=== PATIENT | female | born 1950 | race African-American/Black ===

== ENCOUNTER 2018-02-09 10:38 | Inpatient (IN) ==
[2018-02-09] MEDS ORDERED: GLUCAGON 1 MG VIAL IM PRN (11:22)
[2018-02-09] MEDS ORDERED: DEXTROSE 50% 25 GM/50 ML VIAL IV PRN (11:22)
[2018-02-09] MEDS: DEXTROSE 5% NACL 0.45% 1,000 ML IV SCH (14:03)
[2018-02-09] MEDS: INSULIN REGULAR 100 UNIT/ML SUBCUT SCH ×3 (14:10→22:01)
[2018-02-09 17:12] LABS: Apearance,Urine CLEAR (Clear); Bilirubin,Urine Negative (Negative); Blood, Urine Negative (Negative); Glucose,Urine (UA) Negative (Negative); Ketones,Urine Negative (Negative); Nitrite,Urine Negative (Negative); Protein,Urine Negative; RBC,Urine <1 /HPF (0-4); Urine Color Yellow (Yellow); Urine Specific Gravity 1.011 (1.001-1.035); Urine Urobilinogen < 2.0 EU/DL (0.2-1.0); WBC,Urine <1 /HPF (0-6)
[2018-02-09] MEDS ORDERED: INSULIN NPH/REGULAR 70/30 100 UNIT/ML SUBCUT SCH (19:00)
[2018-02-09] MEDS: CIPROFLOXACIN 250 MG TABLET PO SCH (21:59)
[2018-02-09] MEDS: CARVEDILOL 25 MG TABLET PO SCH (21:59)
[2018-02-09] MEDS: INSULIN GLARGINE 100 UNIT/ML SUBCUT SCH (22:02)
[2018-02-09] MEDS: POTASSIUM CHLORIDE 20 MEQ TABLET PO SCH (22:02)
[2018-02-10] MEDS: DEXTROSE 5% NACL 0.45% 1,000 ML IV SCH ×2 (05:22→20:43)
[2018-02-10 06:04] LABS: Basophils % 0.4 % (0.0-0.8); Eosinophils # 0.2 10*3/uL (0.0-0.87); Eosinophils % 2.9 % (0.00-10.9); Hematocrit 28.3 VOL% (35.7-47.0); Hemoglobin 9.2 GM/DL (12.0-16.0); Immature Granulocytes % 0.4 %; Immature Granulocytes Absolute 0.03 #; Lymphocytes # 1.5 10*3/uL (1.4-4.0); Lymphocytes % 19.7 % (21.3-54.2); Mean Corpuscular HGB Conc 32.5 GM/DL (32-36); Mean Corpuscular Hemoglobin 27 PG (27-34); Mean Corpuscular Volume 82.3 FL (87-102); Mean Platelet Volume 10.4 FL (9.6-12.0); Monocytes # 0.7 10*3/uL (0.11-0.8); Monocytes % 9.7 % (1.7-12.7); Neutrophils # 4.9 10*3/uL (1.4-7.4); Neutrophils % 66.9 % (38.7-73.9); Platelet Count 232 T/CUMM (130-400); Red Blood Count 3.44 MC/CUMM (3.8-5.5); Red Cell Distribution Width 15.5 % (9.3-17.3); White Blood Count 7.4 T/CUMM (4-12)
[2018-02-10 06:06] LABS: INR 1.6; PT Patient Result 16.6 SECS
[2018-02-10 06:40] LABS: Osmolality,Calculated 280.7 MOS/KG (273-304); Potassium 3.8 MMOL/L (3.5-5.1)
[2018-02-10] MEDS: LISINOPRIL 20 MG TABLET PO SCH (09:08)
[2018-02-10] MEDS: ATORVASTATIN 20 MG TABLET PO SCH (09:08)
[2018-02-10] MEDS: FUROSEMIDE 40 MG TABLET PO SCH (09:08)
[2018-02-10] MEDS: amLODIPine 5 MG TABLET PO SCH (09:08)
[2018-02-10] MEDS: ASPIRIN EC 81 MG TABLET PO SCH (09:09)
[2018-02-10] MEDS: POTASSIUM CHLORIDE 20 MEQ TABLET PO SCH ×2 (09:09→20:42)
[2018-02-10] MEDS: CARVEDILOL 25 MG TABLET PO SCH ×2 (09:09→18:10)
[2018-02-10] MEDS: OXYBUTYNIN 5 MG TABLET PO SCH (09:09)
[2018-02-10] MEDS: CIPROFLOXACIN 250 MG TABLET PO SCH ×2 (09:11→20:42)
[2018-02-10] MEDS: INSULIN REGULAR 100 UNIT/ML SUBCUT SCH ×4 (09:11→22:11)
[2018-02-10] MEDS: INSULIN NPH/REGULAR 70/30 100 UNIT/ML SUBCUT SCH ×2 (09:12→22:10)
[2018-02-10] MEDS: LEVOTHYROXINE 112 MCG TABLET PO SCH (12:20)
[2018-02-10 12:35] LABS: Free T4 (Free Thyroxine) 1.62 NG/DL (0.76-1.46); Thyroid Stimulating Hormone 1.16 uIU/ml (0.358-3.74)
[2018-02-10 13:01] LABS: % Iron Saturation 18.2 % (18-50)
[2018-02-10] MEDS: WARFARIN 5 MG TABLET PO SCH (18:10)
[2018-02-10] MEDS: PANTOPRAZOLE 40 MG TABLET PO SCH (18:10)
[2018-02-10] MEDS: POLYETHYLENE GLYCOL POWDER 17 GM PACK PO SCH (20:43)
[2018-02-10] MEDS: INSULIN GLARGINE 100 UNIT/ML SUBCUT SCH (22:11)
[2018-02-11] MEDS: LEVOTHYROXINE 112 MCG TABLET PO SCH (06:37)
[2018-02-11] MEDS: PANTOPRAZOLE 40 MG TABLET PO SCH ×3 (06:37→18:01)
[2018-02-11 07:07] LABS: INR 1.6; PT Patient Result 16.2 SECS
[2018-02-11] MEDS: INSULIN NPH/REGULAR 70/30 100 UNIT/ML SUBCUT SCH ×2 (08:23→18:00)
[2018-02-11] MEDS: INSULIN REGULAR 100 UNIT/ML SUBCUT SCH ×4 (08:26→21:22)
[2018-02-11] MEDS: ASPIRIN EC 81 MG TABLET PO SCH (08:50)
[2018-02-11] MEDS: amLODIPine 5 MG TABLET PO SCH (08:50)
[2018-02-11] MEDS: FUROSEMIDE 40 MG TABLET PO SCH (08:50)
[2018-02-11] MEDS: POLYETHYLENE GLYCOL POWDER 17 GM PACK PO SCH ×3 (08:50→21:22)
[2018-02-11] MEDS: ATORVASTATIN 20 MG TABLET PO SCH (08:50)
[2018-02-11] MEDS: POTASSIUM CHLORIDE 20 MEQ TABLET PO SCH ×2 (08:50→21:21)
[2018-02-11] MEDS: LISINOPRIL 20 MG TABLET PO SCH (08:50)
[2018-02-11] MEDS: CARVEDILOL 25 MG TABLET PO SCH ×2 (08:51→17:24)
[2018-02-11] MEDS: CIPROFLOXACIN 250 MG TABLET PO SCH ×2 (08:51→21:21)
[2018-02-11] MEDS: OXYBUTYNIN 5 MG TABLET PO SCH (08:51)
[2018-02-11] MEDS ORDERED: WARFARIN 2.5 MG TABLET PO SCH (18:00)
[2018-02-11] MEDS: DEXTROSE 5% NACL 0.45% 1,000 ML IV SCH (21:23)
[2018-02-11] MEDS: INSULIN GLARGINE 100 UNIT/ML SUBCUT SCH (21:23)
[2018-02-12 06:31] LABS: Basophils % 0.2 % (0.0-0.8); Eosinophils # 0.2 10*3/uL (0.0-0.87); Eosinophils % 2.3 % (0.00-10.9); Hematocrit 29.4 VOL% (35.7-47.0); Hemoglobin 9.8 GM/DL (12.0-16.0); Immature Granulocytes % 0.4 %; Immature Granulocytes Absolute 0.03 #; Lymphocytes # 1.2 10*3/uL (1.4-4.0); Mean Corpuscular HGB Conc 33.3 GM/DL (32-36); Mean Corpuscular Hemoglobin 27 PG (27-34); Mean Platelet Volume 10.3 FL (9.6-12.0); Monocytes # 0.8 10*3/uL (0.11-0.8); Monocytes % 9.5 % (1.7-12.7); Neutrophils # 6.2 10*3/uL (1.4-7.4); Neutrophils % 73.6 % (38.7-73.9); Platelet Count 209 T/CUMM (130-400); Red Blood Count 3.63 MC/CUMM (3.8-5.5); Red Cell Distribution Width 15.4 % (9.3-17.3); White Blood Count 8.4 T/CUMM (4-12)
[2018-02-12] MEDS: LEVOTHYROXINE 112 MCG TABLET PO SCH (07:00)
[2018-02-12] MEDS: PANTOPRAZOLE 40 MG TABLET PO SCH ×2 (07:00→18:26)
[2018-02-12 08:23] LABS: INR 1.5; PT Patient Result 16.1 SECS
[2018-02-12] MEDS: INSULIN REGULAR 100 UNIT/ML SUBCUT SCH ×4 (08:38→20:06)
[2018-02-12] MEDS: POLYETHYLENE GLYCOL POWDER 17 GM PACK PO SCH ×2 (08:40→21:12)
[2018-02-12] MEDS: CIPROFLOXACIN 250 MG TABLET PO SCH ×2 (08:40→21:12)
[2018-02-12] MEDS: FUROSEMIDE 40 MG TABLET PO SCH (08:40)
[2018-02-12] MEDS: LISINOPRIL 20 MG TABLET PO SCH (08:41)
[2018-02-12] MEDS: POTASSIUM CHLORIDE 20 MEQ TABLET PO SCH ×2 (08:41→21:12)
[2018-02-12] MEDS: CARVEDILOL 25 MG TABLET PO SCH ×2 (08:41→16:57)
[2018-02-12] MEDS: amLODIPine 5 MG TABLET PO SCH (08:41)
[2018-02-12] MEDS: ASPIRIN EC 81 MG TABLET PO SCH (08:41)
[2018-02-12] MEDS: ATORVASTATIN 20 MG TABLET PO SCH (08:41)
[2018-02-12] MEDS: OXYBUTYNIN 5 MG TABLET PO SCH (08:41)
[2018-02-12] MEDS: INSULIN NPH/REGULAR 70/30 100 UNIT/ML SUBCUT SCH ×2 (08:41→19:04)
[2018-02-12] MEDS ORDERED: methylPREDNISolone SOD SUC 40 MG/1 ML VIAL IV ONE (11:09)
[2018-02-12] MEDS: LEVOTHYROXINE 75 MCG TABLET PO SCH (11:30)
[2018-02-12] MEDS ORDERED: SKIN HEALING OINT (AQUAPHOR) 50 GM TUBE TOP PRN (16:21)
[2018-02-12] MEDS: WARFARIN 5 MG TABLET PO SCH (17:00)
[2018-02-12] MEDS: INSULIN GLARGINE 100 UNIT/ML SUBCUT SCH (20:06)
[2018-02-12] MEDS: DEXTROSE 5% NACL 0.45% 1,000 ML IV SCH (21:12)
[2018-02-13 06:45] LABS: INR 1.7; PT Patient Result 17.8 SECS
[2018-02-13] MEDS: PANTOPRAZOLE 40 MG TABLET PO SCH (06:48)
[2018-02-13] MEDS: LEVOTHYROXINE 75 MCG TABLET PO SCH (06:48)
[2018-02-13] MEDS ORDERED: LINACLOTIDE 145 MCG CAPSULE PO SCH (07:30)
[2018-02-13] MEDS: INSULIN NPH/REGULAR 70/30 100 UNIT/ML SUBCUT SCH (08:41)
[2018-02-13] MEDS: CIPROFLOXACIN 250 MG TABLET PO SCH (08:42)
[2018-02-13] MEDS: FUROSEMIDE 40 MG TABLET PO SCH (08:42)
[2018-02-13] MEDS: CARVEDILOL 25 MG TABLET PO SCH (08:42)
[2018-02-13] MEDS: INSULIN REGULAR 100 UNIT/ML SUBCUT SCH ×2 (08:42→11:21)
[2018-02-13] MEDS: POTASSIUM CHLORIDE 20 MEQ TABLET PO SCH (08:42)
[2018-02-13] MEDS: ASPIRIN EC 81 MG TABLET PO SCH (08:42)
[2018-02-13] MEDS: OXYBUTYNIN 5 MG TABLET PO SCH (08:42)
[2018-02-13] MEDS: ATORVASTATIN 20 MG TABLET PO SCH (08:42)
[2018-02-13] MEDS: LISINOPRIL 20 MG TABLET PO SCH (08:42)
[2018-02-13] MEDS: amLODIPine 5 MG TABLET PO SCH (08:42)
[2018-02-13] MEDS: POLYETHYLENE GLYCOL POWDER 17 GM PACK PO SCH (08:43)
[2018-02-13 11:39] VITALS: BP 140/72
== END 2018-02-13 13:32 | DRG 57 ==
LOC: N.5E 11:49
PROVIDERS: ADMIT Internal Medicine Pulmonary Disease; ATTEND Internal Medicine Pulmonary Disease